=== PATIENT | female | born 1995 | race Caucasian/White ===

== ENCOUNTER 2018-08-14 23:48 | Inpatient (IN) | payer OTHER ==
[~2018-08-14] VITALS: Ht 169 cm; Wt 64.0 kg
[2018-08-15] MEDS ORDERED: RINGERS SOLUTION,LACTATED 1,000 ML IV PRN (00:51)
[2018-08-15] MEDS ORDERED: RINGERS SOLUTION,LACTATED 1,000 ML IV SCH (00:51)
[2018-08-15] MEDS ORDERED: OXYTOCIN 30 UNITS/LACT RINGERS 500 ML IV ONE ×2 (00:51→08:03)
[2018-08-15] MEDS ORDERED: OXYTOCIN 30 UNITS/LACT RINGERS 500 ML IV PRN (00:51)
[2018-08-15] MEDS ORDERED: OXYGEN THERAPY IH SCH (01:00)
[2018-08-15] MEDS ORDERED: FentaNYL CITRATE-PF 100 MCG/2 ML VIAL IVP PRN (01:00)
[2018-08-15] MEDS ORDERED: METOCLOPRAMIDE HCL 5 MG/ML 2 ML VIAL IVP PRN (01:00)
[2018-08-15] MEDS ORDERED: CITRIC ACID/SODIUM CITRATE 30 ML SOLUTION UDCUP PO PRN (01:00)
[2018-08-15 01:18] LABS: BASOPHILS % (AUTO) 0.4 % (0.0-2.0); EOSINOPHILS % (AUTO) 2.2 % (1.0-6.0); HEMATOCRIT 39.2 % (36-46); HEMOGLOBIN 13.2 g/dL (12.0-16.0); MEAN CORPUSCULAR HEMOGLOBIN 30.2 pg (26.0-34.0); MEAN CORPUSCULAR HGB CONC 33.6 G/dL (31.0-37.0); MEAN CORPUSCULAR VOLUME 90 fL (80-100); MONOCYTES # (AUTO) 0.4 K/uL (0.1-1.0); MONOCYTES % (AUTO) 3.5 % (2.0-9.0); NEUTROPHILS # (AUTO) 8.5 K/uL (1.8-7.7); NEUTROPHILS % (AUTO) 75.9 % (40.0-70.0); PLATELET COUNT (AUTO)-OB 178 K/uL (150-450); RED BLOOD CELL COUNT(AUTO) 4.36 MIL/uL (4.00-5.20); RED CELL DISTRIBUTION WIDTH 13.1 % (11.5-14.5)
[2018-08-15 05:03] VITALS: BP 109/67
[2018-08-15] MEDS ORDERED: prenatal PO (05:07)
[2018-08-15] MEDS ORDERED: [UNRECOGNIZED DRUG - CODE] PO (05:08)
[2018-08-15] MEDS ORDERED: FERR324T4 PO (05:10)
[2018-08-15] MEDS ORDERED: MINERAL OIL 30 ML UDCUP VG ONE (07:45)
[2018-08-15] MEDS ORDERED: LIDOCAINE/PF 1% 30 ML VIAL INJ PRN (08:15)
[2018-08-15] MEDS ORDERED: LANOLIN 7 GM OINTMENT TP PRN (08:15)
[2018-08-15] MEDS ORDERED: BENZOCAINE 20%/MENTHOL 56 GM SPRAY CANISTER TP PRN (08:15)
[2018-08-15] MEDS ORDERED: OxyCODONE HCL/ACETAMINOPHEN 5-325 MG TABLET PO PRN ×2 (08:15)
[2018-08-15] MEDS ORDERED: GLYCERIN/WITCH HAZEL LEAF 40 PADS JAR TP PRN (08:15)
[2018-08-15] MEDS ORDERED: MAGNESIUM HYDROXIDE SUSPENSION 30 ML UDCUP PO PRN (08:15)
[2018-08-15] MEDS: IBUPROFEN 800 MG TABLET PO PRN ×2 (08:30→17:26)
[2018-08-16] MEDS: IBUPROFEN 800 MG TABLET PO PRN (00:41)
[2018-08-16 06:37] LABS: BASOPHILS % (AUTO) 0.5 % (0.0-2.0); EOSINOPHILS % (AUTO) 4.1 % (1.0-6.0); HEMATOCRIT 34.4 % (36-46); HEMOGLOBIN 11.7 g/dL (12.0-16.0); LYMPHOCYTES # (AUTO) 2.8 K/uL (1.0-4.8); LYMPHOCYTES % (AUTO) 29.2 % (22.0-44.0); MEAN CORPUSCULAR HEMOGLOBIN 30.7 pg (26.0-34.0); MEAN CORPUSCULAR HGB CONC 34.1 G/dL (31.0-37.0); MEAN CORPUSCULAR VOLUME 90 fL (80-100); MONOCYTES # (AUTO) 0.4 K/uL (0.1-1.0); MONOCYTES % (AUTO) 4.5 % (2.0-9.0); NEUTROPHILS # (AUTO) 5.9 K/uL (1.8-7.7); NEUTROPHILS % (AUTO) 61.7 % (40.0-70.0); PLATELET COUNT (AUTO)-OB 151 K/uL (150-450); RED BLOOD CELL COUNT(AUTO) 3.81 MIL/uL (4.00-5.20); RED CELL DISTRIBUTION WIDTH 13.1 % (11.5-14.5)
[2018-08-16] MEDS ORDERED: IBUP-2071 PO (09:42)
[2018-08-16] MEDS ORDERED: DSS100 PO (09:43)
== END 2018-08-16 10:45 | disposition home or self-care (01) | DRG 807 ==
LOC: 4S 23:48 → OBSVTOIN 23:48
PROVIDERS: ADMIT Obstetrics & Gynecology; ATTEND Obstetrics & Gynecology
PROC: 10E0XZZ Delivery of Products of Conception, External Approach (ICD-10-PCS; principal; 2018-08-15)
PROC: 0HQ9XZZ Repair Perineum Skin, External Approach (ICD-10-PCS; 2018-08-15)
DX: O69.81X0 Labor and delivery complicated by cord around neck, without compression, not applicable or unspecified (principal); Z37.0 Single live birth; O70.0 First degree perineal laceration during delivery; Z3A.37 37 weeks gestation of pregnancy
CPT/HCPCS: 86850; 86900; 86901; 89060; J2590; J3010; J7120